=== PATIENT | female | born 1985 | race Caucasian/White ===

== ENCOUNTER 2016-12-27 02:41 | Emergency (ER) | payer OTHER ==
[~2016-12-27] VITALS: Ht 162.6 cm; Wt 54.5 kg
[2016-12-27 02:43] VITALS: BP 105/70; PULSE 79; RESP 14; O2SAT 99
--- NOTE | 2016-12-27 03:04 | ED.REPORT ---
HPI-NVD Date of Service Dec 27, 2016 ED Provider: Dr. Padilla Edmondson M.D. The patient is a 31 year old homeless female with a history of polysubstance abuse who presents to the ED via EMS with nausea and vomiting onset just prior to arrival. [place] burping frequently. She subsequently [place] outside [place] and when she woke up she began vomiting violently with hematemesis. The patient denies other symptoms. She used methamphetamines this morning and IV heroin at 1500 today. The patient recently finished a treatment program for substance abuse but has continued to use since. She was recently started on Bactrim for an abscess. Nursing Notes Stated Complaint: VOMITING Chief Complaint: Substance Abuse Nursing Notes Reviewed: Yes Allergies: Coded Allergies: No Known Allergies (Unverified , 12/27/16) Scheduled Buprenorphine HCl/Naloxone HCl (Suboxone 8 mg-2 mg Sl Film) 1 Each Film 1 EACH SL BID General Time Seen by MD: 03:03 Chief Complaint Nausea, Vomiting Hx Obtained From: Patient Arrived By: Ambulance Onset Occurred: Just prior to arrival Symptom Duration: Since onset Severity: Current: No pain currently Severity: Maximum: No pain Pertinent Negative: Relieved by nothing Related History: Reports: Drug use/abuse history Recent Healthcare: No recent doctor visit Past Medical History Past Medical History Polysubstance abuse Past Surgical History None reported Smoking History Unknown if Ever Smoker Social History Alcohol Use: Denies alcohol use Drug Use: IV drugs (Heroin), Meth Other Social History: From out of town, Homeless Ambulatory Status Independent Review of Systems Review of Systems Note: + Frequent burping Constitutional: Denies: Fever GI: Reports: Hematemesis, Nausea, Vomiting Complete sys rev & neg: except as marked. Respiratory: Denies: Non-productive cough, Shortness of breath Physical Exam Initial Vital Signs Vital Signs (First) Date Time Temp Pulse Resp B/P Pulse Ox O2 Delivery O2 Flow Rate FiO2 12/27/16 02:43 36.4 79 14 105/70 99 Room Air Initial VS: Reviewed, Vital signs normal Head / Eyes: Atraumatic, Normocephalic ENT: Conjunctiva normal, No scleral icterus Neck: Supple, Full range of motion General/Constitutional: Awake, Alert Patient is tweaking and twitching Abdomen: Soft, Non-tender Patient vomited bloody emesis just prior to being seen Respiratory / Chest: Breath sounds NL, Breath sounds = bilat, No respiratory distress Cardiovascular: Regular rhythm, Heart sounds NL Heart Rate / Rhythm: Positive: Tachycardia Skin: Warm, Dry Diffusely covered with scars and sores No abscesses present Track [place] present Neurologic: Oriented X3, Speech NL Interpretation & Diagnostics Lab Results Interpretation Result Diagram: 12/27/16 0404 12/27/16 0404 Test 12/27/16 04:04 White Blood Count 6.6th/mm3 (3.8-10.1) Red Blood Count 4.72mil/mm3 (3.90-5.20) Hemoglobin 13.6g/dL (12.0-15.6) Hematocrit 38.4% (35.0-46.0) Mean Corpuscular Volume 81.4fL (81-100) Mean Corpuscular Hemoglobin 28.8pg (27.0-35.0) Mean Corpuscular Hemoglobin Concent 35.4% (32.0-37.0) Red Cell Distribution Width 14.3% (12.3-15.4) Platelet Count 257bil/L (150-400) Neutrophils (%) (Auto) 66.0% (40-74) Lymphocytes (%) (Auto) 21.9% (14-46) Monocytes (%) (Auto) 10.1% (4-12) Eosinophils (%) (Auto) 1.4% (0-5) Basophils (%) (Auto) 0.3% (0-3) Prothrombin Time 10.6sec (8.1-12.5) Prothromb Time International Ratio 0.99ratio Sodium Level 138mEq/L (134-144) Potassium Level 3.9mEq/L (3.5-5.2) Chloride Level 102mEq/L (97-108) Carbon Dioxide Level 21mmol/L (18-29) Blood Urea Nitrogen 9mg/dL (6-20) Creatinine 0.54mg/dL (0.57-1.00) Estimat Glomerular Filtration Rate 191mL/min (>59) Glucose Level 106mg/dL (60-99) Calcium Level 9.3mg/dL (8.5-10.1) Magnesium Level 2.1mg/dL (1.6-2.6) Total Bilirubin 0.5mg/dL (0.0-1.2) Aspartate Amino Transf (AST/SGOT) 28U/L (0-50) Alanine Aminotransferase (ALT/SGPT) 28U/L (0-32) Alkaline Phosphatase 93U/L (25-150) Total Protein 7.3g/dL (6.4-8.4) Albumin 3.7g/dL (3.4-5.0) Lab values outside NL range: no clinical significance. Re-Eval/Medical Decision Med Decision/Clinical Course 31-year-old female who uses IV and smoked heroin and methamphetamine. She had several episodes of vomiting today, cause uncertain. Then she vomited blood. She was transported here for evaluation. Her vital signs and labs are normal and stable. She appears to have a Coty-Alvares tear. Additionally, her drug use was discussed in depth. She is encouraged to follow up at [facility] this week. She was given a 5 day course of Suboxone 8/2 twice daily, # 10 prescribed. She will return here [facility] if she has further bleeding. Re-Evaluation/Progress : Time of Eval: 05:12 Patient Status: Condition improved Re-Evaluation/Progress Note: Patient's nausea and vomiting have resolved. Discussed with patient lab results, diagnosis, and plan for discharge. Follow-up and return to the ER instructions given. Patient agrees with plan for care and all questions were addressed. Counseled Regarding: Diagnosis, Lab results, Need for follow-up, When/why to return to ED Discharge & Departure Impression: Primary Impression: Nausea and vomiting Vomiting type: unspecified Vomiting Intractability: non-intractable Qualified Code: R11.2 - Nausea with vomiting, unspecified Additional Impressions: Coty-Alvares tear Opioid dependence Substance use status: uncomplicated Qualified Code: F11.20 - Opioid dependence, uncomplicated Methamphetamine abuse Disposition: Home Discharge Condition All VS Reviewed: Yes Condition: Improved Patient Instructions: Acute Nausea and Vomiting (ED), Buprenorphine (Into the mouth) Additional Instructions: Not use any more heroin or methamphetamine. Tomorrow at 3 PM you can start Suboxone 8/2 film or tablets, 1 dissolved orally twice daily, #10 dispensed. Contact the [facility] priority access line for an appointment at . You can get an appointment in [place] or in [place] this week. It is common for someone who retches violently to have bleeding, called a Coty-Alvares tear. Nothing need be done at that unless the vomiting persists. Your blood count is normal. There is no evidence of ongoing blood loss. Scribe Attestation Portions of this note were transcribed by Kirssy Doe. I, Dr. Edmondson, personally performed the history, physical exam, and medical decision-making; I reviewed and confirmed the accuracy of the information in the transcribed note. Signed by: Lopez Kern, 12/27/2016, 06:05 Padilla Edmondson MD Dec 27, 2016 03:04 KRISSY DOE Dec 27, 2016 03:13
[2016-12-27] MEDS ORDERED: Ondansetron 8 mg ODT Tablet PO ONE ×2 (03:20→04:50)
[2016-12-27 04:14] LABS: BASOPHILS % (AUTO) 0.3 % (0-3); EOSINOPHILS % (AUTO) 1.4 % (0-5); MONOCYTES % (AUTO) 10.1 % (4-12); Mean Corpuscular Hemoglobin 28.8 pg (27.0-35.0); Mean Corpuscular Volume 81.4 fL (81-100); Platelet Count 257 bil/L (150-400)
[2016-12-27 04:31] LABS: INR 0.99 ratio
[2016-12-27 04:37] LABS: Magnesium 2.1 mg/dL (1.6-2.6)
[2016-12-27] MEDS ORDERED: BUPR1FIL3 SL (05:25)
[2016-12-27 06:03] VITALS: BP 111/73; PULSE 68; RESP 14; O2SAT 99
[2016-12-27 06:21] VITALS: BP 111/73; PULSE 68; RESP 14; O2SAT 99
[2016-12-27] MEDS ORDERED: Triamcinolone 0.1% 30 Gm Cream TOPICAL SCH (08:30)
== END 2016-12-27 06:22 | disposition home or self-care (01) ==
LOC: EDBD 02:41 → SED 02:41
DX: K22.6 Gastro-esophageal laceration-hemorrhage syndrome (principal); F11.20 Opioid dependence, uncomplicated; F15.20 Other stimulant dependence, uncomplicated; Z59.0 Homelessness